=== PATIENT | male | born 1985 | race Caucasian/White ===

== ENCOUNTER 2017-06-01 14:26 | Emergency (ER) | payer BC, MEDICAID, OTHER ==
[2017-06-01 15:02] VITALS: BP 154/79
[2017-06-01] MEDS ORDERED: Acetaminophen/HYDROcodone 325-5 MG Tab PO ONE (15:08)
[2017-06-01] MEDS ORDERED: Ibuprofen 800 MG Tab PO ONE (15:09)
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
--- NOTE | 2017-06-02 08:59 | CR ---
Left ankle There is a displaced fracture of the medial malleolus. There is an oblique fracture through the dista l diametaphysis of the fibula. The posterior malleolus appears intact. There is mild widening of the medial ankle mortise. Impression: 1. Fractures of the medial malleolus and distal fibula.
== END 2017-06-01 16:16 | disposition home or self-care (01) ==
LOC: JP.ED 14:26
DX: S82.842A Displaced bimalleolar fracture of left lower leg, initial encounter for closed fracture (principal); I10 Essential (primary) hypertension; F17.210 Nicotine dependence, cigarettes, uncomplicated; Z79.899 Other long term (current) drug therapy; W51.XXXA Accidental striking against or bumped into by another person, initial encounter
CPT/HCPCS: 29515; 73610; 99284; A9270

== ENCOUNTER → 2017-06-10 | Day surgery (SDC) | payer OTHER ==
[~2017-06-10] MED LIST: Acetaminophen/oxyCODONE 325-5 MG Tab PO PRN; Bupivacaine 0.5% 50 ML MDV ONE; Bupivacaine 0.5%/EPINEPHrine 1:200,000 50 ML MDV ONE; Dexamethasone 4 MG/ML SDV ONE; Gentamicin 40 MG/ML 2 ML Vial ONE; Glycopyrrolate 0.2 MG/ML 5 ML MDV ONE; Ketorolac 60 MG/2 ML SDV IM ONE; Lactated Ringers 1,000 ML IV SCH; Neostigmine Methylsulfate 1 MG/ML 5 ML Syringe ONE; Ondansetron 4 MG/2 ML SDV ONE; Povidone-Iodine 10% Soln 118.25 ML Bottle ONE; Propofol 200 MG/20 ML SDV ONE; Rocuronium 50 MG/5 ML Vial ONE; Succinylcholine 200 MG/10 ML MDV ONE; ceFAZolin 2 GM in Sodium Chloride 0.9% 50 ML IV ONE
[2017-06-10 13:33] VITALS: BP 142/77
--- NOTE | 2017-06-10 13:39 | OR ---
DATE OF PROCEDURE: 06/10/2017 PREOPERATIVE DIAGNOSIS: Left ankle bimalleolar fracture, closed. POSTOPERATIVE DIAGNOSIS: Left ankle bimalleolar fracture, closed. PROCEDURES: 1. Left ankle open reduction and internal fixation of bimalleolar fracture. 2. Placement of short-leg splint. ANESTHESIA: General endotracheal intubation. FLUID: Lactated Ringer solution. ESTIMATED BLOOD LOSS: 10 mL. COMPLICATIONS: None. SPECIMEN: None. DISCHARGE DISPOSITION: Stable to PACU. INDICATIONS: The patient was seen preoperatively in the clinic. He fell suffering the above mentioned diagnosis. Preoperative imaging confirmed the above-mentioned diagnosis. Risks and benefits of the procedure were explained to the patient. Informed consent was obtained. DETAILS OF PROCEDURE: The patient was seen preoperatively by myself and the Anesthesia Staff in the preoperative holding area where the operative site was marked. He was brought to the operative suite by the anesthesia staff where general anesthesia was administered. He was placed in supine on the Jorge table. All extremities found to be well padded. A well-padded tourniquet was placed on the left thigh. The left lower extremity was then prepped and draped in a sterile manner. Time-out was called identifying the correct patient, correct procedure, the correct site, and antibiotics had already begun. The left lower extremity was then exsanguinated. Tourniquet was raised to 250 mmHg and taken down after placement of dressing. A longitudinal incision was made from the tip of the distal fibula approximately 20 cm carried down subcutaneously. I could see the blood at the fracture site and then just entered bluntly with my finger and then staying on the bone proximally and distally, used an elevator to elevate the soft tissue off the bone, thereby avoiding the superficial peroneal nerve which was not seen during the procedure. After this had been cleared, I could see the fracture site easily. I cleared a little bit of the hematoma using a Foley irrigation and then used a lobster claw forceps and reduced it. I then placed a compression screw with 26 mm 3.5 mm cortical fully threaded screw. This provided good reduction. I then placed a distal fibular plate on. I placed my 3.5 proximal cortical screws 1st. Most distal of those, I could not place because of my compression screw. I then filled all my locking screws distally. This provided excellent stability and fixation. This was confirmed to be in good position on the sterilely draped fluoroscopy unit. I then made 2 longitudinal incisions for my medial malleolar screws. I used a guidewire with a 4-0 cannulated cancellous set and then placed two 44 mm screws. I then took my final films, which showed good reduction and fixation and then we copiously irrigated with Betadine infused irrigation and then closed the lateral incision with 2-0 Vicryl subcutaneously followed by 3-0 nylon horizontal mattress sutures. The medial malleolar incisions were closed with 3-0 nylon horizontal mattress sutures. Betadine soaked Adaptic was then placed over the incisions followed by 4x4s, followed by some Webril. I then placed a short-leg splint and allowed this to dry in neutral dorsiflexion. The patient was then allowed to awaken from general anesthesia, taken to the PACU in stable condition. Khoa Preston DO /[id number]
== END ==
LOC: JP.SDS 08:20
PROVIDERS: ATTEND Orthopaedic Surgery
DX: S82.842A Displaced bimalleolar fracture of left lower leg, initial encounter for closed fracture (principal); I10 Essential (primary) hypertension; Z79.899 Other long term (current) drug therapy; Y93.72 Activity, wrestling; F17.210 Nicotine dependence, cigarettes, uncomplicated
CPT/HCPCS: 27814; 76000; A9270; C1713; J0330; J0690; J1100; J1885; J2405; J2704; J2710; J3010; J7050; J7120; J1580

== ENCOUNTER 2019-02-04 09:18 | Day surgery (SDC) | payer OTHER ==
[~2019-02-04 09:18] MED LIST changes: -Acetaminophen/oxyCODONE 325-5 MG Tab PO PRN; -Bupivacaine 0.5%/EPINEPHrine 1:200,000 50 ML MDV ONE; -Dexamethasone 4 MG/ML SDV ONE; -Gentamicin 40 MG/ML 2 ML Vial ONE; -Glycopyrrolate 0.2 MG/ML 5 ML MDV ONE; -Ketorolac 60 MG/2 ML SDV IM ONE; -Lactated Ringers 1,000 ML IV SCH; +Lidocaine 1% with EPINEPHrine 1:100,000 50 ML MDV ONE; -Neostigmine Methylsulfate 1 MG/ML 5 ML Syringe ONE; -Ondansetron 4 MG/2 ML SDV ONE; -Povidone-Iodine 10% Soln 118.25 ML Bottle ONE; -Propofol 200 MG/20 ML SDV ONE; -Rocuronium 50 MG/5 ML Vial ONE; -Succinylcholine 200 MG/10 ML MDV ONE; -ceFAZolin 2 GM in Sodium Chloride 0.9% 50 ML IV ONE
[2019-02-04] MEDS ORDERED: Sodium Chloride 0.9% 1,000 ML IV SCH (09:30)
[2019-02-04] MEDS ORDERED: fentaNYL 100 MCG/2 ML SDV ONE ×2 (10:10→11:08)
[2019-02-04] MEDS ORDERED: Midazolam 1 MG/ML 2 ML SDV ONE ×2 (10:10→10:42)
[2019-02-04] MEDS ORDERED: Propofol 200 MG/20 ML SDV ONE ×4 (10:10→11:02)
[2019-02-04] MEDS ORDERED: metroNIDAZOLE/Normal Saline 500 MG in Premix Bag 1 BAG IV ONE (10:30)
[2019-02-04] MEDS ORDERED: ceFAZolin 2 GM in Premix Bag 1 BAG IV ONE (10:30)
[2019-02-04] MEDS ORDERED: Ropivacaine 50 ML, dexAMETHasone 8 MG, EPINEPHrine 0.4 MG, Sodium Chloride 0.9% 27.6 ML NERVRT SCH ×4 (10:30)
[2019-02-04] MEDS ORDERED: Ondansetron 4 MG/2 ML SDV ONE (10:47)
[2019-02-04] MEDS ORDERED: Dexamethasone 4 MG/ML SDV ONE (10:47)
[2019-02-04] MEDS ORDERED: Ketorolac 60 MG/2 ML SDV ONE (10:47)
[2019-02-04 13:17] VITALS: BP 151/74
--- NOTE | 2019-02-05 08:22 | OR ---
DATE OF PROCEDURE: 02/04/2019 SURGEON: Fahad Lake MD PROCEDURE: Open inguinal hernia repair, right, incarcerated. COMPLICATIONS: None. [employer]: None. ANESTHESIA: MAC/local. RISKS: Risks, benefits, alternatives, and limitations including, but not limited to infection, bleeding, injury to testicular structures, complete loss of testicular blood flow requiring orchiectomy, hernia failures, seroma formation, chronic pain, and other risks not listed here were explained to the patient, who wished to proceed. PROCEDURE IN DETAIL: The patient was placed in supine position. A suprapubic curvilinear incision was made approximately 5 cm in size. This was after anesthetizing with lidocaine. Electrocautery was used to dissect down to external oblique aponeurosis, which was opened with the back of a 15 blade. This was enlarged with the Metzenbaum scissors. In the hernia itself, there was a large amount of abdominal omentum. There was bowel noted to be in this; however, this was reduced prior to initiation of surgery. The hernia structure was able to be mobilized and from the cord structures. The cord structures were surrounded with a [place] drain. The abdominal contents were able to be deflected into the [id number] sized hernia. This was then dissected further. This was then repaired with an extra-large plug and patch. The extra-large plug was then inserted and sutured with interrupted Vicryl sutures, 3-0. These were placed about every 1 cm. The overlay patch was then stitched to the pubic symphysis. This was then secured with interrupted 0 Vicryl sutures. The tails were placed around the cord structures. They were not tightened, but were approximated. The external oblique aponeurosis was then closed with 4-0 Vicryl. Subcutaneous tissues were closed with 3-0 Vicryl. The skin was closed with 4-0 Vicryl. The patient tolerated the procedure well. Fahad Lake MD /[id number]
--- NOTE | 2019-02-05 08:25 | OR ---
DATE OF PROCEDURE: 02/04/2019 SURGEON: Fahad Lake MD PROCEDURE: Transversus abdominis plane block, bilaterally. COMPLICATION: None. [employer] PAVER: None. RISKS: Risks, benefits, alternatives, and limitations including, but not limited to infection, bleeding, and chronic pain were explained to the patient, who wished to proceed. PROCEDURE IN DETAIL: The patient was placed in supine position. The left transversus abdominis plane was identified and injected first with the 90% of contents. This was done under direct visualization between the second and third layers. The other side was then performed in same manner, same fashion, same technique, and in the same sequence. The patient tolerated the procedure well. Fahad Lake MD /[id number]
== END 2019-02-04 13:15 | disposition home or self-care (01) ==
LOC: JP.SDS 09:18
PROVIDERS: ATTEND Surgery
DX: K40.30 Unilateral inguinal hernia, with obstruction, without gangrene, not specified as recurrent (principal); I10 Essential (primary) hypertension; F17.200 Nicotine dependence, unspecified, uncomplicated; G89.18 Other acute postprocedural pain
CPT/HCPCS: C1781; J0171; J0690; J1100; J1885; J2250; J2405; J2704; J2795; J3010; J3490; J7050